=== PATIENT | male | born 1980 | race Caucasian/White ===

== ENCOUNTER 2017-01-02 17:40 | Emergency (ER) | payer BC ==
[~2017-01-02] VITALS: Ht 172.7 cm; Wt 71.3 kg
[~2017-01-02 17:40] MED LIST: BLEPH-105 ML LEFT EYE
[2017-01-02 19:16] VITALS: BP 112/57
== END 2017-01-02 19:17 | disposition home or self-care (01) ==
LOC: EME 17:40
DX: T54.2X1A Toxic effect of corrosive acids and acid-like substances, accidental (unintentional), initial encounter (principal)
CPT/HCPCS: 99281; 99283